=== PATIENT | female | born 1965 ===

== ENCOUNTER 2019-08-14 10:10 | Observation (INO) | payer OTHER ==
[2019-08-14] MEDS ORDERED: ASPIRIN 325 MG TAB PO ONE (10:29)
--- NOTE | 2019-08-14 11:16 | XRay Report ---
CHEST 1 VIEW INDICATION / CLINICAL INFORMATION: Chest Pain. COMPARISON: None available. FINDINGS: SUPPORT DEVICES: None. HEART / MEDIASTINUM: No significant abnormality. LUNGS / PLEURA: No significant pulmonary or pleural abnormality. No pneumothorax. ADDITIONAL FINDINGS: No significant additional findings. IMPRESSION: 1. No acute findings. Signer Name: Maurice Aldridge MD Signed: 08/14/2019 11:04 AM Workstation Name: [id number]
[2019-08-14 11:30] LABS: Basophils % (Auto) 0.5 % (0.0-1.8); Eosinophils # (Auto) 0.1 K/mm3 (0.0-0.4); Eosinophils % (Auto) 1.9 % (0.0-4.3); Hematocrit 41.8 % (30.3-42.9); Hemoglobin 13.9 gm/dl (10.1-14.3); Lymphocytes # (Auto) 1.9 K/mm3 (1.2-5.4); Mean Corpuscular HGB Conc 33 % (30-34); Mean Corpuscular Volume 92 fl (79-97); Monocytes # (Auto) 0.3 K/mm3 (0.0-0.8); Monocytes % (Auto) 6.6 % (0.0-7.3); Platelet Count 225 K/mm3 (140-440); Red Blood Count 4.54 M/mm3 (3.65-5.03); Red Cell Distribution Width 13.1 % (13.2-15.2)
[2019-08-14] MEDS ORDERED: ONDANSETRON 4 MG/2 ML INJ IV ONE (12:12)
[2019-08-14] MEDS ORDERED: NITROGLYCERIN 2% OINT 1 GM TP ONE (12:12)
[2019-08-14] MEDS ORDERED: fentaNYL 100 MCG/2 ML INJ IV ONE (12:12)
--- NOTE | 2019-08-14 12:16 | Emergency Department Report ---
HPI - General Chief Complaint: Chest Pain Time Seen by Provider: 08/14/19 12:00 - [facility] HPI: Room 20 The patient is a 54-year-old female presenting with chief complaint is pain. The patient states for 1.5 weeks she's had constant pain in the right chest described as a pressure radiating to the right shoulder. Patient also complains of numbness in the right hand and weakness of the left hand. Patient was shortness of breath with chest pain in addition to nausea but denies vomiting. Patient missed pleurisy. Patient is also complaining of a headache times months. The patient states she has noticed blood in her stool several times over the last month. Patient admits to rectal pain with the blood in the stool. Patient states she's never had a stress test or cardiac catheterization Location: [See above] Duration: [See above] Quality: [See above] Severity: [See above] Timing: [See above] Context: [See above] Modifying factors: [See above] Associated signs and symptoms: [see above] ED Past Medical Hx - Past Medical History Previous Medical History?: No - Surgical History Past Surgical History?: No - Family History Family history: no significant - Social History Smoking Status: Never Smoker Substance Use Type: None ED Review of Systems ROS: Stated complaint: CHEST PAIN Other details as noted in HPI Constitutional: no symptoms reported Eyes: denies: eye pain ENT: denies: throat pain Respiratory: shortness of breath Cardiovascular: chest pain Endocrine: no symptoms reported Gastrointestinal: nausea. denies: vomiting Musculoskeletal: denies: back pain Neurological: headache, weakness, paresthesias Physical Exam - Physical Exam Vital Signs: Vital Signs 08/14/19 10:27 Temperature 98.3 F Pulse Rate 74 Respiratory 20 Rate Blood Pressure 191/94 O2 Sat by Pulse 98 Oximetry Physical Exam: GENERAL: The patient is well-developed well-nourished female in on stretcher not appearing to be in acute distress. [] HEENT: Normocephalic. Atraumatic. Extraocular motions are intact. Patient has moist mucous membranes. NECK: Supple. Trachea midline CHEST/LUNGS: Clear to auscultation. There is no respiratory distress noted. HEART/CARDIOVASCULAR: Regular. There is no tachycardia. There is no gallop rub or murmur. ABDOMEN: Abdomen is soft, nontender. Patient has normal bowel sounds. There is no abdominal distention. SKIN: There is no rash. There is no edema. There is no diaphoresis. NEURO: The patient is awake, alert, and oriented. The patient is cooperative. The patient has normal speech. GCS 15. 4+/5 left wic site coordinator, 5+/5 right wic site coordinator. No pronator drift MUSCULOSKELETAL: There is no evidence of acute injury. ED Course Vital Signs 08/14/19 10:27 Temperature 98.3 F Pulse Rate 74 Respiratory 20 Rate Blood Pressure 191/94 O2 Sat by Pulse 98 Oximetry ED Medical Decision Making - Lab Data Result diagrams: 08/14/19 10:52 08/14/19 10:52 Laboratory Tests 08/14/19 08/14/19 08/14/19 10:52 10:52 13:00 WBC 5.3 RBC 4.54 Hgb 13.9 Hct 41.8 MCV 92 MCH 31 MCHC 33 RDW 13.1 L Plt Count 225 Lymph % (Auto) 36.0 H Douglas % (Auto) 6.6 Eos % (Auto) 1.9 Baso % (Auto) 0.5 Lymph # 1.9 Douglas # 0.3 Eos # 0.1 Baso # 0.0 Seg Neutrophils % 55.0 Seg Neutrophils # 2.9 D-Dimer 156.25 Sodium 141 Potassium 4.1 Chloride 102.0 Carbon Dioxide 25 Anion Gap 18 BUN 13 Creatinine 0.6 L Estimated GFR > 60 BUN/Creatinine Ratio 22 Glucose 108 H Calcium 9.2 Troponin T < 0.010 - EKG Data -: EKG Interpreted by Me EKG shows normal: sinus rhythm Rate: normal - EKG Data When compared to previous EKG there are: previous EKG unavailable Interpretation: other (no ischemic changes seen) - Radiology Data Radiology results: pending (CT head), report reviewed (chest x-ray), image reviewed (CT head, chest x-ray) interpreted by me: CT head (read by myself)-no gross hemorrhage seen Chest x-ray-no focal infiltrates, no pneumothorax [facility] [address] [place] [address] XRay Report Signed Patient: RODY DELGADO MR#: [id number] : 1965 Acct:[id number] Age/Sex: 54 / F ADM Date: 08/14/19 Loc: ED Attending Dr: Ordering Physician: ED DOC, MD Date of Service: 08/14/19 Procedure(s): XR chest 1V ap Accession Number(s): [id number] cc: ED MD CHRISTOPHER Fluoro Time In Minutes: CHEST 1 VIEW INDICATION / CLINICAL INFORMATION: Chest Pain. COMPARISON: None availabl e. FINDINGS: SUPPORT DEVICES: None. HEART / MEDIASTINUM: No significant abnormality. LUNGS / PLEURA: No significant pulmonary or pleural abnormality. No pneumothorax. ADDITIONAL FINDINGS: No significant additional findings. IMPRESSION: 1. No acute findings. Signer Name: Maurice Aldridge MD Signed: 08/14 11:04 AM Workstation Name: [id number] Transcribed By: BC Dictated By: Maurice Aldridge MD Electronically Authenticated By: Maurice Aldridge MD Signed Date/Time: 08/14/19 110 DD/ TD/TT: - Differential Diagnosis ACS, pericarditis, PE, GERD, CVA Critical care attestation.: If time is entered above; I have spent that time in minutes in the direct care of this critically ill patient, excluding procedure time. ED Disposition Clinical Impression: Chest pain Disposition: DC-09 OP ADMIT IP TO THIS HOSP Is pt being admited?: Yes Condition: Fair Instructions: Chest Pain (ED) Time of Disposition: 14:30 (hospitalist paged (Dr Mcgowan))
[2019-08-14 12:33] LABS: BUN/Creatinine Ratio 22; Blood Urea Nitrogen 13 mg/dL (7-17); Calcium 9.2 mg/dL (8.4-10.2); Hemolysis Index 3
[2019-08-14] MEDS ORDERED: cloNIDine 0.2 MG TAB PO ONE (13:29)
[2019-08-14] MEDS ORDERED: cloNIDine 0.2 MG TAB ONE (13:32)
--- NOTE | 2019-08-14 14:39 | Cat Scan Report ---
CT BRAIN: 08/14/2019 INDICATION / CLINICAL INFORMATION: headache, left hand weakness. COMPARISON: None available. FINDINGS: BRAIN/INTRACRANIAL STRUCTURES: Unenhanced CT images of the brain demonstrate no evidence of acute int racranial abnormality. Ventricles and sulci are normal in size and shape. There is no evidence of hemorrhage or mass. A prominent CSF space is present overlying the vermis in the midline, consistent with normal developm ental variation. There are no abnormal extra-axial fluid collections. EXTRACRANIAL STRUCTURES: Unremarkable. IMPRESSION: No acute abnormality. All CT scans at this location are performed using dose reduction to ALARA by means of automated expos ure control. Signer Name: Nirav Giang MD Signed: 08/14/2019 2:34 PM Workstation Name: [id number]
[2019-08-14] MEDS ORDERED: ASPIRIN 325 MG TAB ONE (14:56)
--- NOTE | 2019-08-14 17:52 | History and Physical Report ---
History of Present Illness Date of examination: 08/14/19 Date of admission: 08/14/2019 Chief complaint: Chest pain for 10 days History of present illness: 54-year-old female with no past medical history comes in for chest pain of 10 days' duration. Chest pain as being retrosternal and right costochondral region. Intermittent in nature. Sharp in nature. 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 Chest pain is at rest. Pain is about 6 on a scale of 1-10. No shortness of breath. No diaphoresis or palpitations. No nausea or vomiting. No recent travel. Chest pain is exacerbated by lifting any weight Past Medical History Previous Medical History?: No Surgical History Past Surgical History?: No Family History Family history: no significant Social History Smoking Status: Never Smoker Substance Use Type: None Review of Systems ROS: Stated complaint: CHEST PAIN Other details as noted in HPI Constitutional: no symptoms reported Eyes: denies: eye pain ENT: denies: throat pain Respiratory: shortness of breath Cardiovascular: chest pain Endocrine: no symptoms reported Gastrointestinal: nausea. denies: vomiting Musculoskeletal: denies: back pain Neurological: headache, weakness, paresthesias 14 point review of systems done and otherwise negative Medications and Allergies Allergies Allergy/AdvReac Type Severity Reaction Status Date / Time No Known Allergies Allergy Verified 08/14/19 12:01 Exam - Constitutional Vitals: Temp Pulse Resp BP Pulse Ox 98 F 68 11 L 111/65 93 08/14/19 17:31 08/14/19 17:00 08/14/19 17:00 08/14/19 17:00 08/14/19 17:00 General appearance: Present: no acute distress, well-nourished - EENT Eyes: Present: PERRL ENT: hearing intact, clear oral mucosa - Neck Neck: Present: supple, normal ROM - Respiratory Respiratory effort: normal Respiratory: bilateral: CTA (chest wall tenderness present especially right costochondral junction) - Cardiovascular Heart rate: 78 Rhythm: other (chest wall tenderness present) Heart Sounds: Present: S1 & S2. Absent: rub, click - Extremities Extremities: no ischemia, pulses intact, pulses symmetrical, No edema Peripheral Pulses: within normal limits - Abdominal General gastrointestinal: Present: soft, non-tender, non-distended, normal bowel sounds Female genitourinary: Present: normal - Rectal Rectal Exam: deferred - Integumentary Integumentary: Present: clear, warm, dry - Musculoskeletal Musculoskeletal: gait normal, strength equal bilaterally - Psychiatric Psychiatric: appropriate mood/affect, intact judgment & insight - Neurologic Neurologic: CNII-XII intact, moves all extremities - Allied Health Allied health notes reviewed: nursing, case management Results - Labs CBC & Chem 7: 08/14/19 10:52 08/14/19 10:52 Labs: Laboratory Last Values WBC 5.3 K/mm3 (4.5-11.0) 08/14/19 10:52 RBC 4.54 M/mm3 (3.65-5.03) 08/14/19 10:52 Hgb 13.9 gm/dl (10.1-14.3) 08/14/19 10:52 Hct 41.8 % (30.3-42.9) 08/14/19 10:52 MCV 92 fl (79-97) 08/14/19 10:52 MCH 31 pg (28-32) 08/14/19 10:52 MCHC 33 % (30-34) 08/14/19 10:52 RDW 13.1 % (13.2-15.2) L 08/14/19 10:52 Plt Count 225 K/mm3 (140-440) 08/14/19 10:52 Lymph % (Auto) 36.0 % (13.4-35.0) H 08/14/19 10:52 [place] % (Auto) 6.6 % (0.0-7.3) 08/14/19 10:52 Eos % (Auto) 1.9 % (0.0-4.3) 08/14/19 10:52 Baso % (Auto) 0.5 % (0.0-1.8) 08/14/19 10:52 Lymph # 1.9 K/mm3 (1.2-5.4) 08/14/19 10:52 [place] # 0.3 K/mm3 (0.0-0.8) 08/14/19 10:52 Eos # 0.1 K/mm3 (0.0-0.4) 08/14/19 10:52 Baso # 0.0 K/mm3 (0.0-0.1) 08/14/19 10:52 Seg Neutrophils % 55.0 % (40.0-70.0) 08/14/19 10:52 Seg Neutrophils # 2.9 K/mm3 (1.8-7.7) 08/14/19 10:52 D-Dimer 156.25 ng/mlDDU (0-234) 08/14/19 13:00 Sodium 141 mmol/L (137-145) 08/14/19 10:52 Potassium 4.1 mmol/L (3.6-5.0) 08/14/19 10:52 Chloride 102.0 mmol/L (98-107) 08/14/19 10:52 Carbon Dioxide 25 mmol/L (22-30) 08/14/19 10:52 Anion Gap 18 mmol/L 08/14/19 10:52 BUN 13 mg/dL (7-17) 08/14/19 10:52 Creatinine 0.6 mg/dL (0.7-1.2) L 08/14/19 10:52 Estimated GFR > 60 ml/min 08/14/19 10:52 BUN/Creatinine Ratio 22 % 08/14/19 10:52 Glucose 108 mg/dL (65-100) H 08/14/19 10:52 Calcium 9.2 mg/dL (8.4-10.2) 08/14/19 10:52 Troponin T < 0.010 ng/mL (0.00-0.029) 08/14/19 16:42 Short CBC 08/14/19 Range/Units 10:52 WBC 5.3 (4.5-11.0) K/mm3 Hgb 13.9 (10.1-14.3) gm/dl Hct 41.8 (30.3-42.9) % Plt Count 225 (140-440) K/mm3 [facility] 08/14/19 10:52 Sodium 141 Potassium 4.1 Chloride 102.0 Carbon Dioxide 25 BUN 13 Creatinine 0.6 L Glucose 108 H Calcium 9.2 Cardiac Enzymes 08/14/19 08/14/19 08/14/19 Range/Units 10:52 14:31 16:42 Troponin T < 0.010 < 0.010 < 0.010 (0.00-0.029) ng/mL - Imaging and Cardiology EKG: report reviewed (normal sinus rhythm heart rate of 78/m no acute changes) Assessment and Plan Advance Directives: Yes (full code) VTE prophylaxis?: Chemical Plan of care discussed with patient/family: Yes - Patient Problems (1) Chest pain Current Visit: Yes Status: Acute Qualifiers: Chest pain type: unspecified Plan to address problem: Chest pain rule out WI protocol Serial troponins Exercise stress test in the morning Differential diagnosis of costochondritis and GERD (2) Costochondritis, acute Current Visit: Yes Status: Acute Plan to address problem: Patient most likely has costochondritis She has tenderness on the right costochondral junction Motrin 600 3 times a day for 7 to 10 days (3) Type 2 diabetes mellitus Current Visit: Yes Status: Acute Plan to address problem: Patient has borderline diabetes We will start her on metformin 500 mg once a day extended release We will educate about diabetes also diet reviewed with patient (4) DVT prophylaxis Current Visit: Yes Status: Acute Plan to address problem: On heparin and GI prophylaxis
[2019-08-14] MEDS ORDERED: HYDROmorphone 1 MG/1 ML INJ IV PRN (17:53)
[2019-08-14] MEDS ORDERED: IBUPROFEN 600 MG TAB PO PRN (17:53)
[2019-08-14] MEDS ORDERED: ONDANSETRON 4 MG/2 ML INJ IV PRN (17:53)
[2019-08-14] MEDS: ACETAMINOPHEN 325 MG TAB PO PRN (21:05)
[2019-08-14] MEDS: HEPARIN 5,000 UNIT/1 ML VIAL SUB-Q SCH (21:07)
[2019-08-15 06:16] LABS: Alanine Aminotransferase 28 units/L (7-56); Albumin 3.7 g/dL (3.9-5); BUN/Creatinine Ratio 20; Blood Urea Nitrogen 14 mg/dL (7-17); Calcium 8.7 mg/dL (8.4-10.2); Hemolysis Index 6
[2019-08-15 12:40] VITALS: BP 118/64
--- NOTE | 2019-08-15 13:01 | Discharge Summary ---
Providers - Providers Date of Admission: 08/14/19 17:53 Date of discharge: 08/15/19 Attending physician: ADONAY ESTRELLA Primary care physician: [employer] Hospitalization Condition: Fair Hospital course: Discharge diagnosis: (1) Chest pain Current Visit: Yes Status: Acute Qualifiers: Chest pain type: unspecified Plan to address problem: Chest pain rule out ID protocol Serial troponins negative Exercise stress test in the morning normal likely from costochondritis (2) Costochondritis, acute Current Visit: Yes Status: Acute Plan to address problem: Patient most likely has costochondritis She has tenderness on the right costochondral junction Motrin 600 3 times a day for 7 to 10 days (3) Type 2 diabetes mellitus Current Visit: Yes Status: Acute Plan to address problem: Patient has borderline diabetes We will start her on metformin 500 mg once a day extended release We will educate about diabetes also diet reviewed with patient Disposition: DC-01 TO HOME OR SELFCARE Time spent for discharge: 34 minutes Core Measure Documentation - Palliative Care Palliative Care/ Comfort Measures: Not Applicable - Core Measures Any of the following diagnoses?: none Exam - Constitutional Vitals: Temp Pulse Resp BP Pulse Ox 98.2 F 68 18 118/64 96 08/15/19 07:30 08/15/19 12:24 08/15/19 07:30 08/15/19 11:57 08/15/19 03:12 Plan Activity: advance as tolerated Weight Bearing Status: Weight Bear as Tolerated Diet: low fat, low salt Follow up with: PRIMARY MD GLORIA [Primary Care Provider] - 3-5 Days MARCIE FANG MD [Staff Physician] - 7 Days QUAN MANTILLA MD [Staff Physician] - 7 Days Prescriptions: Ibuprofen [Motrin 600 MG tab] 600 mg PO Q6H PRN #20 tablet PRN Reason: Pain, Mild (1-3)
[2019-08-15] MEDS: ACETAMINOPHEN 325 MG TAB PO PRN (13:05)
[2019-08-15] MEDS: HEPARIN 5,000 UNIT/1 ML VIAL SUB-Q SCH (13:06)
--- NOTE | 2019-08-15 21:05 | Treadmill Report ---
TREADMILL STRESS TEST INDICATION FOR PROCEDURE: Chest pain. Informed consent was obtained. The patient exercised on the treadmill according to the Jordan protocol for a total of 6 minutes and 50 seconds, reaching a peak heart rate of 51 beats per minute and a blood pressure of 160/90. The resting heart rate was 72. The baseline electrocardiogram was within normal limits. The baseline blood pressure was 146/74. Exercise was limited by fatigue. The patient achieved a workload of 8.1 mets. There were no significant ischemic repolarization abnormalities during exercise or in the recovery phase. There was no significant ectopy. The treadmill exercise test is clinically and electrocardiographically nonischemic. The patient exhibited fair exercise tolerance. JOB# [id number] ORLY/TEJA
== END 2019-08-15 16:45 | disposition home or self-care (01) ==
LOC: ED 10:10 → 4A 17:53
PROVIDERS: ADMIT Internal Medicine; ATTEND Internal Medicine
DX: M94.0 Chondrocostal junction syndrome [Tietze] (principal); E11.9 Type 2 diabetes mellitus without complications; Z79.84 Long term (current) use of oral hypoglycemic drugs
CPT/HCPCS: 36415; 70450; 71045; 80048; 80053; 83036; 84484; 85025; 85379; 93005; 93010; 93017; 96372; 96374; 96375; 99284; G0378; J1170; J1644; J2405; J3010